=== PATIENT | male | born 1995 | race Caucasian/White ===

== ENCOUNTER 2020-05-10 22:32 | Emergency (ER) | payer OTHER, SELFPAY ==
--- NOTE | ~2020-05-10 | XR_ITS ---
EXAMINATION: XR ankle RT min 3V INDICATION: Right ankle pain TECHNIQUE: Four views of the right ankle are obtained. COMPARISON: None available FINDINGS: There is no acute fracture, dislocation, or subluxation. A well corticated heterotopic dens ity distal to the medial malleolus likely reflects prior injury. IMPRESSION: 1. No acute osseous abnormality. Reviewed, dictated and finalized at location A. RCYCLE RACER
--- NOTE | ~2020-05-10 | XR_ITS ---
EXAMINATION: XR knee RT 3V DATE: 05/10/2020 23:02 INDICATION: Right knee pain TECHNIQUE: Three views of the right knee were obtained. COMPARISON: 12/15/2010 FINDINGS: Alignment is normal. No fracture or osteochondral lesion. Joint spaces are normal with no e rosions. No joint effusion/synovitis. Soft tissues are unremarkable. IMPRESSION: 1. No acute osseous abnormality. Reviewed, dictated and finalized at location A. PONG TABLE ASSEMBLER
[2020-05-10 22:35] VITALS: BP 131/93; PULSE 115; RESP 16; TEMP 36.7; O2SAT 99
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
[2020-05-10] MEDS: IBUPROFEN 600 MG TABLET PO (23:38)
[2020-05-10 23:41] VITALS: BP 132/78; PULSE 110; RESP 16; O2SAT 100
== END 2020-05-10 23:43 | disposition home or self-care (01) ==
PROVIDERS: Emergency Provider Emergency Medicine
DX: S89.91XA Unspecified injury of right lower leg, initial encounter (principal); S99.911A Unspecified injury of right ankle, initial encounter; Y35.811A Legal intervention involving manhandling, law enforcement official injured, initial encounter
CPT/HCPCS: 73562; 73610; 99284; A9270

== ENCOUNTER 2020-10-21 01:00 | Emergency (ER) | payer OTHER, SELFPAY ==
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
--- NOTE | 2020-10-21 01:05 | PC.NURSE ---
vrbo rt wrist xray
[2020-10-21 01:15] VITALS: BP 113/78; PULSE 75; RESP 18; TEMP 36.7; O2SAT 97
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
[2020-10-21 05:18] VITALS: BP 117/64; PULSE 68; RESP 16; O2SAT 100
== END 2020-10-21 05:20 | disposition home or self-care (01) ==
PROVIDERS: Emergency Provider General Practice
DX: S63.91XA Sprain of unspecified part of right wrist and hand, initial encounter (principal); W50.1XXA Accidental kick by another person, initial encounter; Y99.0 Civilian activity done for income or pay
CPT/HCPCS: 73110; 99283